=== PATIENT | female | born 1985 | race African-American/Black ===

== ENCOUNTER 2016-09-27 23:32 | Emergency (ER) | payer SELFPAY ==
[~2016-09-27] VITALS: Ht 157.5 cm; Wt 52.5 kg
[2016-09-27 23:39] VITALS: TEMP 36.8; Ht 157.5 cm; Wt 52.5 kg
[2016-09-28] MEDS ORDERED: AMOXICIL/CLAVU 875MG HOME PACK PO ONE (00:45)
[2016-09-28] MEDS ORDERED: AMOX875T PO (00:47)
[2016-09-28 01:00] VITALS: BP 111/68; PULSE 87; O2SAT 99
--- NOTE | 2016-09-28 04:54 | EMERGENCY ROOM VISIT NOTE ---
History First contact with patient: 00:24 Chief Complaint: LACERATION/CUT (SUT/DERMABOND) Stated Complaint: CUT MY GUMS BAD WITH A BOTTLE- Nursing Triage Summary: pt has hole in left lower mouth, piece between lip and gums, cut it on beer bottle. History of Present Illness The patient is a 31 year old female who presents to the Emergency Room with complaints of upper mouth wound after she opened a beer bottle with her mouth. Patient currently on amoxicillin for dental infection. Tetanus is current. Patient denies facial pain, dental pain, fever, chills, sore throat, abdominal pain or any other medical complaints. Review of Systems See HPI for pertinent positives & negatives. A total of 6 systems reviewed and were otherwise negative. Past Medical/Surgical History None Social History Smoking Status: Never Smoker Alcohol Use: occasionally Drug Use: marijuana Occupation Status: employed Current/Historical Medications Scheduled Amoxicillin & Pot Clavulanate (Augmentin 875-125 mg), 1 TAB PO BID Allergies Coded Allergies: No Known Allergies (Unverified , 09/27/16) Physical Exam Vital Signs Date Time Temp Pulse Resp B/P (MAP) Pulse Ox O2 Delivery O2 Flow Rate FiO2 09/28/16 01:00 87 18 111/68 99 Room Air 09/27/16 23:39 36.8 91 18 113/75 96 Room Air Pain Rating (0-10): 0 Physical Exam VITALS: Vitals are noted on the nurse's note and reviewed by myself. Vital signs stable. GENERAL: Pleasant female, in no acute distress, nondiaphoretic, well-developed well-nourished. SKIN: The skin was without rashes, erythema, edema, or bruising. There is no tenting of the skin. Capillary reflex less than 2 seconds. HEAD: Normocephalic atraumatic. EARS: External auditory canals clear, tympanic membranes pearly mckeon without erythema or effusion bilaterally. EYES: Pupils equal round and reactive to light and accommodation. Conjunctivae without injection, sclerae without icterus. Extraocular movements intact. NOSE: Patent, turbinates without inflammation or discharge. No sinus tenderness. MOUTH: Mucous membranes moist. Left lower bucca mucosa with 3 mm open wound that is is not bleeding and appears clean with no foreign bodies Pharynx without erythema or exudate. Uvula midline. Airway patent. Tongue does not deviate. Dental exam: Second upper molar with dental decay with no palpable abscess overall dental hygiene fair. No Bill angina NECK: Supple without nuchal rigidity. No lymphadenopathy. No thyromegaly. Cervical spine is nontender. No JVD. HEART: Regular rate and rhythm without murmurs gallops or rubs. LUNGS: Clear to auscultation bilaterally without wheezes, rales or rhonchi. No dullness to percussion. No retractions or accessory muscle use. MUSCULOSKELETAL: No muscle atrophy, erythema, or edema noted. NEURO: Patient was alert and oriented to person place and time. Normal sensation to light and sharp touch. No focal neurological deficits. Medical Decision & Procedures Medications Administered Medications (Trade) Dose Ordered Sig/Lisandro Route Start Time Stop Time Status Last Admin Dose Admin Amoxicillin/ Clavulanate Potassium (Augmentin 875MG Home Pack) 1 homepack UD ONCE PO 09/28/16 00:45 09/28/16 00:46 DC 09/28/16 00:48 1 HOMEPACK ED Course Prior records reviewed and summarized as above. Triage Nursing notes reviewed. Additional history obtained from friend. The patient's history was concerning for open mouth wound. Differential diagnosis: Etiologies such as cellulitis, abscess, laceration, as well as others were entertained.. Physical examination: The physical examination was consistent with open mouth wound ER treatment provided: Augmentin On reassessment the patient felt better. Diagnostics interpreted by me: Deferred This appears to be isolated open mouth wound. Patient was started on Augmentin and advised to stop the amoxicillin. She is strongly encouraged not to open a beer bottles with her mouth and to take medications as directed. She is advised to follow-up with family care in a few days or here in the ER sooner for fevers, facial swelling, worsening signs or symptoms or as needed. Patient had no palpable abscess on exam. No dental injury. She is well-appearing. By the evaluation outlined above emergent etiologies such as abscess as well as others were deemed relatively unlikely. The pt informed about the findings as listed above. All questions were answered and pleased with the treatment. Return instructions were outlined and the patient was discharged in stable condition. Outpatient prescription management: Augmentin Referral: The patient was referred back to primary care physician for follow-up in 2 to 3 days for a recheck of the current condition. Medical Decision As above Impression Primary Impression: Open mouth wound Departure Information Dispostion Home / Self-Care Condition GOOD Prescriptions Amoxicillin & Pot Clavulanate (Augmentin 875-125 mg) 1 Tab Tab 1 TAB PO BID for 9 Days, #18 TAB Prov: Eliz Willis PA-C 09/28/16 Forms HOME CARE DOCUMENTATION FORM, IMPORTANT VISIT INFORMATION Patient Instructions My [facility] Additional Instructions Amoxicillin Clavulanate (Augmentin) 875mg: Take one pill twice daily for 10 days for your infection. All antibiotics can cause diarrhea. If this occurs and you feel worse or it does not resolve in 1-2 days follow up with your doctor or return to the Emergency Department as this could be signs of serious underlying problems. Any medication can cause an allergic reaction, stop the pills immediately and return to the ER for rash, hives, breathing difficulties, or swelling. Ibuprofen(Motrin, Advil) may be used for fever or pain. Use 600mg every six hours as needed. Take with food. Avoid using more than 2400mg in a 24 hour period. Do not use 2400mg per day for more than three consecutive days without physician direction. Prolonged inappropriate use can lead to stomach upset or ulcers. (AND/OR) Acetaminophen(Tylenol) may be used for fever or pain. Use 1000mg every six hours as needed. Avoid using more than 3000mg in a 24 hour period. Rest and drink plenty of fluids. Continue current medications. Saltwater gargles 3 times a day. Return to the ER for severe pain, persistent fevers, spreading redness, or any worsening of your condition. Follow up with your primary physician within 2-3 days for a recheck of the current condition. Problem Qualifiers Primary Impression: Open mouth wound Encounter type: initial encounter Qualified Codes: S01.502A - Unspecified open wound of oral cavity, initial encounter
== END 2016-09-28 01:04 | disposition home or self-care (01) ==
LOC: C.EDB 23:34
DX: S01.512A Laceration without foreign body of oral cavity, initial encounter (principal); W45.8XXA Other foreign body or object entering through skin, initial encounter; F12.90 Cannabis use, unspecified, uncomplicated